=== PATIENT | female | born 1975 | race Caucasian/White ===

== ENCOUNTER 2024-01-24 20:56 | Emergency (ER) | payer OTHER, SELFPAY ==
[2024-01-24 21:42] VITALS: BP 155/82; PULSE 99; RESP 20; TEMP 36.4; O2SAT 95; BMI 35.9
--- NOTE | 2024-01-25 00:17 | ED_ITS ---
HPI - General Adult General Date Seen: 01/25/24 Chief complaint: Insect Bite Stated complaint: Painful lump L arm Time Seen by Provider: 01/24/24 23:14 Source: patient and family Mode of arrival: ambulatory Limitations: language barrier History of Present Illness HPI narrative: Patient is a 48-year-old here with her who is helping to interpret. They declined test skein winder services. She says a couple of days ago she noted what she thought was a bite on her left forearm. Today, she says she was doing a lot of cooking, she seemed to develop redness around this area, she has also noted some itching and pain. She said that there was pus draining from it earlier. She did notice an insect attached to this area and does not recall a specific bite but initially she said it looked like a bug bite. No fevers, myalgias, arthralgias, other rash. Related Data Home Medications ?Medication ?Instructions ?Recorded ?Confirmed GNP 01/24/24 glipizide 10 mg tablet, extended 10 mg PO 3XD 01/24/24 01/24/24 release 24 hr losartan 25 mg tablet 25 mg PO DAILY 01/24/24 01/24/24 metformin 500 mg tablet,extended 1,000 mg PO DAILY 01/24/24 01/24/24 release 24 hr Allergies Allergy/AdvReac Type Severity Reaction Status Date / Time No Known Drug Allergies Allergy Verified 01/24/24 21:42 Review of Systems Status of ROS: Reports: 6 or more systems reviewed and unremarkable except as noted in History and below PFSH [facility] Social History Smoking Status: Never smoker How often do you have a drink containing alcohol: 2-4 times a month AUDIT-C Alcohol total score: 2 Non-prescribed substance use: denies use Exam Narrative: Exam Narrative: Vital signs reviewed In general, alert, well-appearing woman. Extremities: Examination of the left forearm shows which does appear to be an insect bite or sting with about 4 cm of surrounding erythema. This does not look targetoid but it is round, it is somewhat raised but no urticaria. No secondary excoriation, no drainage at this time and I do not feel any kind of abscess that would require drainage. Skin: No other rash or lesion. Const: Vital Signs, click to edit/add: Vital Signs - 24 hr 01/24/24 21:42 Temperature 97.6 F Pulse Rate [Pulse Oximeter] 99 Respiratory Rate 20 Blood Pressure [Ri ght Upper Arm] 155/82 H Pulse Oximetry 95 Oxygen Delivery Me thod Room Air Documenting provider has reviewed patient's vital signs: yes Course Course ED Course: At this time this is somewhat nonspecific. This may represent simply hypersensitivity reaction, the fact that she is noting pain and says there was some purulent drainage does raise the possibility of an infection. I have recommended that we try putting her on antibiotic. At this time she does not meet criteria for erythema migrans, but recommended that if this continues to grow that she be seen again given the circular appearance of this. I would recommend an antihistamine such as Benadryl or Zyrtec. Return any time for significant worsening or see primary care. Vital Signs Vital signs: Initial Vital Signs Temperature 97.6 F 01/24/24 21:42 Temperature Source Temporal Artery Scan 01/24/24 21:42 Pulse Rate 99 01/24/24 21:42 Pulse Rhythm Regular 01/24/24 21:42 Pulse Strength 3+ Normal 01/24/24 21:42 Respiratory Rate 20 01/24/24 21:42 Blood Pressure 155/82 H 01/24/24 21:42 Blood Pressure Mean 106 H 01/24/24 21:42 Pulse Oximetry 95 01/24/24 21:42 Oxygen Delivery Method Room Air 01/24/24 21:42 Vital Signs Temperature 97.6 F 01/24/24 21:42 Pulse Rate 99 01/24/24 21:42 Respiratory Rate 20 01/24/24 21:42 Blood Pressure 155/82 H 01/24/24 21:42 Pulse Oximetry 95 01/24/24 21:42 Oxygen Delivery Method Room Air 01/24/24 21:42 Temperature 97.6 F 01/24/24 21:42 Pulse Rate 99 01/24/24 21:42 Respiratory Rate 20 01/24/24 21:42 Blood Pressure 155/82 H 01/24/24 21:42 Pulse Oximetry 95 01/24/24 21:42 Oxygen Delivery Method Room Air 01/24/24 21:42 Discharge Plan Discharge Clinical Impression: Insect bite Patient Disposition: Home, Self-Care Condition: Stable Instructions: Insect Bite or Sting (ED) Additional Instructions: Antibiotic as prescribed. I would recommend taking medications such as Zyrtec or Claritin to help with itching and inflammation. If the surrounding redness is enlarging rather than stable to improving, if you have new symptoms such as fever, muscle or joint aches, other rashes, return for re-evaluation. Prescriptions: No Action glipizide 10 mg tablet extended release 24hr 10 mg PO 3XD GNP losartan 25 mg tablet 25 mg PO DAILY metformin 500 mg tablet extended release 24 hr 1,000 mg PO DAILY Follow Up/Referrals: Provider,Not a Local [Primary Care Provider] - Stand Alone Forms: [employer] [facility] Info Instructions
== END 2024-01-24 23:45 | disposition home or self-care (01) ==
PROVIDERS: Emergency Provider Emergency Medicine
DX: S40.862A Insect bite (nonvenomous) of left upper arm, initial encounter (principal)
CPT/HCPCS: 99282; 99283; 99284

== ENCOUNTER 2024-05-04 10:21 | Outpatient (REF) | payer OTHER, SELFPAY ==
--- NOTE | 2024-05-04 10:15 | CRLHL7_ITS ---
For Patients: As a result of the Century Cures Act, medical imaging exams and procedure reports are released immediately into your electronic medical record. You may view this report before your referring provider. If you have questions, please contact your health care provider. BILATERAL SCREENING MAMMOGRAM WITH COMPUTER-AIDED DETECTION AND TOMOSYNTHESIS TECHNIQUE: CC and MLO views were obtained. These mammographic images have been obtained using full-field digital technique. These mammographic images were interpreted with the benefit of computer-aided detection. Breast Tomosynthesis was used in this interpretation. COMPARISON FILM: 01/26/2023. FINDINGS: There are scattered areas of fibroglandular density IMPRESSION: There is no radiographic evidence for malignancy. ASSESSMENT: BI-RADS Category 1: Negative RECOMMENDATION: Routine screening mammogram in 1 year. A lay language report of this examination will be provided to the patient. Marvel Yeh M.D. Diagnostic Radiologist [email or web address] FREDI/Dictated by: Marvel Yeh MD @ 05/04/2024 11:30:00 AM (Electronically Signed)
== END 2024-05-04 10:22 | disposition home or self-care (01) ==
LOC: MAMMO 10:21
PROVIDERS: Visit Provider Nurse Practitioner Adult Health
DX: Z12.31 Encounter for screening mammogram for malignant neoplasm of breast (principal)
CPT/HCPCS: 77063; 77067; T1013

== ENCOUNTER 2025-02-17 10:00 | Emergency (ER) | payer OTHER, SELFPAY ==
[2025-02-17 10:08] VITALS: BP 166/80; PULSE 97; RESP 18; TEMP 36.9; O2SAT 99; BMI 35.4
--- NOTE | 2025-02-17 10:35 | ED.GENADULT ---
HPI - General Adult General Chief complaint: Headache/Migraine Stated complaint: Heachache and vomiting Time Seen by Provider: 02/17/25 10:22 History of Present Illness HPI narrative: Patient is a 49-year-old woman with a long history of headaches comes in today stating that the ibuprofen she only takes for headaches is not getting her headaches under control. She has had no fevers no chills no night sweats no stiff neck. Headache is bitemporal. She has no neurologic symptoms no change her vision no palpitations. She states that she has anxiety and her anxiety is severe at this time. She is very concerned about her blood pressure which is elevated 166/80. She receives the bulk for care at [facility]. Related Data Home Medications ?Medication ?Instructions ?Recorded ?Confirmed GNP 01/24/24 glipizide 10 mg tablet, extended 10 mg PO 3XD 01/24/24 02/17/25 release 24 hr losartan 25 mg tablet 25 mg PO DAILY 01/24/24 02/17/25 Allergies Allergy/AdvReac Type Severity Reaction Status Date / Time No Known Drug Allergies Allergy Verified 02/17/25 10:18 Review of Systems Status of ROS: Reports: 10 or more systems reviewed and unremarkable except as noted in History and below PFSH ON [facility] OF [facility] Social History Smoking Status: Never smoker How often do you have a drink containing alcohol: 2-4 times a month AUDIT-C Alcohol total score: 2 Non-prescribed substance use: denies use Exam Narrative: Exam Narrative: EXAM GENERAL: Patient appears comfortable and well. EYES: No scleral icterus. LYMPH: No supraclavicular or cervical lymphadenopathy. SKIN: Visible skin seen during exam normal or with benign process only. EXT: No dependent lower extremity pedal edema. HEART: Regular rate and rhythm with no murmurs, rubs, or gallops. LUNGS: Clear to auscultation bilaterally with no crackles or wheezes. ABD: Soft, non tender, non distended. PSYCH: Good eye contact, speech is not pressured. Neurologic cranial nerves 2-12 grossly intact no focal defects. Const: Vital Signs, click to edit/add: Vital Signs - 24 hr 02/17/25 10:08 Temperature 98.5 F Pulse Rate [Right Pulse Oximeter] 97 Respiratory Rate 18 Blood Pressure [Ri ght Upper Arm] 166/80 H Pulse Oximetry 99 Oxygen Delivery Me thod Room Air Course Course ED Course: Patient seen and examined. Saline lock placed. Normal saline Toradol Zofran and Benadryl given. Vital Signs Vital signs: Initial Vital Signs Temperature 98.5 F 02/17/25 10:08 Temperature Source Temporal Artery Scan 02/17/25 10:08 Pulse Rate 97 02/17/25 10:08 Pulse Rhythm Regular 02/17/25 10:08 Pulse Strength 3+ Normal 02/17/25 10:08 Respiratory Rate 18 02/17/25 10:08 Blood Pressure 166/80 H 02/17/25 10:08 Blood Pressure Mean 108 H 02/17/25 10:08 Blood Pressure Position Sitting 02/17/25 10:08 Pulse Oximetry 99 02/17/25 10:08 Oxygen Delivery Method Room Air 02/17/25 10:08 Vital Signs Temperature 98.5 F 02/17/25 10:08 Pulse Rate 97 02/17/25 10:08 Respiratory Rate 18 02/17/25 10:08 Blood Pressure 166/80 H 02/17/25 10:08 Pulse Oximetry 99 02/17/25 10:08 Oxygen Delivery Method Room Air 02/17/25 10:08 Temperature 98.5 F 02/17/25 10:08 Pulse Rate 97 02/17/25 10:08 Respiratory Rate 18 02/17/25 10:08 Blood Pressure 166/80 H 02/17/25 10:08 Pulse Oximetry 99 02/17/25 10:08 Oxygen Delivery Method Room Air 02/17/25 10:08 Medications Administered Medications: Discontinued Medications Generic Name Dose Route Start Last Admin Trade Name Freq PRN Reason Stop Dose Admin Diphenhydramine HCl 25 mg 02/17/25 10:32 02/17/25 11:24 Diphenhydramine 50 Mg/Ml Inj IVP 02/17/25 10:33 25 mg ONCE ONE Administration Sodium Chloride 1,000 mls @ 1,000 mls/hr 02/17/25 10:33 02/17/25 11:26 0.9 % Sodium Chloride 1000 Ml IV 02/17/25 11:32 1,000 mls/hr .Q1H LILIBETH Administration Ketorolac Tromethamine 30 mg 02/17/25 10:32 02/17/25 11:21 Ketorolac 30 Mg/Ml Inj IVP 02/17/25 10:33 30 mg ONCE ONE Administration Ondansetron HCl 4 mg 02/17/25 10:34 02/17/25 11:23 Ondansetron 2 Mg/Ml Inj IVP 02/17/25 10:35 4 mg ONCE ONE Administration Medical Decision Making MDM Narrative Medical decision making narrative: Patient is a 49-year-old woman with chronic headaches who presents with acute headache. She has no neurologic symptoms and normal exam and reasonable vital signs. I did treated with normal saline Toradol Zofran Benadryl. She will advance her diet activity and follow-up with her primary physician as needed. Discharge Plan Discharge Clinical Impression: Headache Patient Disposition: Home, Self-Care Condition: Stable Instructions: Acute Headache (ED) Additional Instructions: Rest Fluids Tylenol Motrin Follow-up with your doctor as scheduled. Activity Level: No Restrictions Discharge Diet: Regular Prescriptions: No Action glipizide 10 mg tablet extended release 24hr 10 mg PO 3XD GNP losartan 25 mg tablet 25 mg PO DAILY Follow Up/Referrals: Provider,Not a Local [Primary Care Provider, Family Practice] Stand Alone Forms: [facility] Info Instructions
[2025-02-17] MEDS: KETOROLAC 30 MG/ML inj IVP (11:21)
[2025-02-17] MEDS: ONDANSETRON 2 MG/ML inj 4 MG IVP (11:23)
[2025-02-17] MEDS: diphenhydrAMINE 50 MG/ML inj 25 MG IVP (11:24)
[2025-02-17] MEDS: 0.9 % SODIUM CHLORIDE 1000 ml 1,000 ML IV (11:26)
[2025-02-17 12:21] VITALS: BP 145/84; PULSE 82; RESP 18; TEMP 37; O2SAT 96
== END 2025-02-17 12:33 | disposition home or self-care (01) ==
PROVIDERS: Emergency Provider Internal Medicine
DX: R51.9 Headache, unspecified (principal)
CPT/HCPCS: 96374; 96375; 99283; 99284; J1200; J1885; J2405; J7030